=== PATIENT | female | born 1945 | race Two or more races ===

== ENCOUNTER 2021-10-09 13:23 | Outpatient (CLI) | payer OTHER ==
[~2021-10-09 13:23] MED LIST: ASA81 MG PO; AVAPRO150 MG PO; BACLOFEN; NEURONTIN; TENORMIN50 MG PO; ULTRAM ER100 MG PO; VIT D
== END 2021-10-09 14:41 | disposition home or self-care (01) ==
LOC: RAD 13:23
PROVIDERS: ATTEND Orthopaedic Surgery
DX: M17.11 Unilateral primary osteoarthritis, right knee (principal); M21.061 Valgus deformity, not elsewhere classified, right knee

== ENCOUNTER 2024-12-08 15:46 | Outpatient (CLI) | payer OTHER | END 2024-12-08 15:54 | disposition home or self-care (01) | LOC: RAD 15:46 | PROVIDERS: ATTEND Orthopaedic Surgery | DX: M25.511 Pain in right shoulder (principal); M25.522 Pain in left elbow ==